=== PATIENT | male | born 1945 | race Caucasian/White ===

== ENCOUNTER 2021-04-30 11:54 | Emergency (ER) | payer MEDICARE ==
[~2021-04-30] VITALS: Ht 170.2 cm; Wt 88.5 kg
[2021-04-30] MEDS ORDERED: HYDROCODONE/APAP 7.5MG-325MG 1 EA TAB PO ONE (12:45)
== END 2021-04-30 12:45 | disposition home or self-care (01) ==
LOC: ER 12:38
DX: M79.2 Neuralgia and neuritis, unspecified (principal); H92.01 Otalgia, right ear; I10 Essential (primary) hypertension; E78.5 Hyperlipidemia, unspecified
CPT/HCPCS: 99282